=== PATIENT | female | born 1950 | race Caucasian/White ===

== ENCOUNTER 2017-10-03 10:34 | Emergency (ER) | payer OTHER ==
[~2017-10-03] VITALS: Ht 162.6 cm; Wt 112.3 kg
[~2017-10-03 10:34] MED LIST: ACYCLOVIR400 MG PO; BACTROBAN OINTM22 GM TP; CALCIUM 600 MG; CALCIUM 600 MG1 EACH PO; ENDOCET 5-3251 EACH PO; LEVOFLOXACIN500 MG PO; LEVOTHYROXINE75 MCG PO; MULTIPLE VITAM1 EAC1 PO; PREMARIN0.625 MG PO; TYLENOL REGULA325 MG PO; VITRON-C TABLE1 EACH PO; WOMEN'S DAILY1 EAC1 PO; [UNRECOGNIZED DRUG - OTHER]
[2017-10-03 11:25] LABS: HEMATOCRIT 45.3 % (36.0-46.0); HEMOGLOBIN 15.1 G/DL (11.9-15.5); MCHC 33.3 G/DL (30.0-36.0); MCV 90.1 FL (83-99); PLATELET COUNT 213 K/uL (156-360); RBC DIS.WIDTH-CV 12.7 % (11.8-14.6); RBC DIS.WIDTH-SD 41.7 % (39-53); RED BLOOD COUNT 5.03 M/uL (3.80-5.20); WHITE BLOOD COUNT 4.5 K/uL (4.1-10.2)
[2017-10-03 11:28] LABS: APPEARANCE CLEAR ((CLEAR)); BILIRUBIN NEGATIVE; BLOOD NEGATIVE; COLOR YELLOW ((YELLOW)); GLUCOSE (STRIP) NEGATIVE; KETONES NEGATIVE; LEUKOCYTES NEGATIVE; NITRITE NEGATIVE; PROTEIN (STRIP) NEGATIVE; SPECIFIC GRAVITY 1.024 (1.000-1.030); UCUL ADDED? NO; UROBILINOGEN 0.2 MG/DL (0.2-1.0)
[2017-10-03 11:32] LABS: ALBUMIN 4.2 g/dL (3.2-4.8)
[2017-10-03 11:33] LABS: CHLORIDE 108 mEq/L (99-109); POTASSIUM 4.4 mEq/L (3.7-5.4); SODIUM 141 mEq/L (136-147)
[2017-10-03 11:35] LABS: GLUCOSE 105 mg/dL (70-99); TOTAL PROTEIN 7.2 g/dL (6.4-8.3)
[2017-10-03 11:37] LABS: TOTAL BILIRUBIN 0.5 mg/dL (0.0-1.0)
[2017-10-03 11:38] LABS: ALKALINE PHOSPHATASE 82 IU/L (3-129)
[2017-10-03 11:39] LABS: CREATININE 0.8 mg/dL (0.6-1.3); GFR ESTIMATE (CALCULATED) > 59 mL/min/
[2017-10-03 11:40] LABS: AST (GOT) 16 IU/L (2-34); UREA NITROGEN (BUN) 18 mg/dL (9-23)
[2017-10-03 11:42] LABS: ALT (GPT) 18 IU/L (3-49)
[2017-10-03 15:15] VITALS: BP 131/76
== END 2017-10-03 15:26 | disposition home or self-care (01) ==
LOC: EME 10:34
DX: R10.9 Unspecified abdominal pain (principal); R30.0 Dysuria; K46.9 Unspecified abdominal hernia without obstruction or gangrene; E03.9 Hypothyroidism, unspecified; Z90.710 Acquired absence of both cervix and uterus; Z91.040 Latex allergy status; Z88.2 Allergy status to sulfonamides; Z88.8 Allergy status to other drugs, medicaments and biological substances
CPT/HCPCS: 74176; 80053; 81003; 85027; 99281; 99285; J7030

== ENCOUNTER 2017-10-31 10:42 | Emergency (ER) | payer OTHER ==
[~2017-10-31] VITALS: Ht 162.6 cm; Wt 111.9 kg
[2017-10-31 12:37] LABS: C DIFF TOXIN ND (NEGATIVE)
[2017-10-31 14:02] VITALS: BP 127/68
== END 2017-10-31 14:04 | disposition home or self-care (01) ==
LOC: EME 10:42
PROVIDERS: Physician Assistant
DX: R19.7 Diarrhea, unspecified (principal); E03.9 Hypothyroidism, unspecified; Z90.710 Acquired absence of both cervix and uterus; Z91.040 Latex allergy status; Z88.2 Allergy status to sulfonamides; Z88.8 Allergy status to other drugs, medicaments and biological substances
CPT/HCPCS: 87493; 99281; 99284